=== PATIENT | male | born 1945 | race Caucasian/White ===

== ENCOUNTER 2016-11-10 18:33 | Emergency (ER) | payer OTHER ==
[~2016-11-10] VITALS: Ht 175.3 cm; Wt 95.3 kg
[~2016-11-10 18:33] MED LIST: ASPIRIN81 M4 PO; CIPRO500 M1 PO; CLOPIDOGREL75 M1 PO; DAILY MULTIPLE1 EACH PO; FISH OIL 1,0001 EACH PO; FLAGYL250 M1 PO; FLOMAX0.4 M1 PO; LEVOTHYROXINE75 MCG PO; LEVSIN0.5 MG/1 M PO; LOSARTAN POTASS50 M1 PO; METFORMIN HCL500 M3 PO; METOPROLOL SUCC25 M1 PO; SIMVASTATIN40 M1 PO; VITAMIN C500 M6 PO; VITAMIN D31000 UNI2 PO
[2016-11-10] MEDS ORDERED: HYOSCYAMINE0.125 M5 SL (18:52)
[2016-11-10] MEDS ORDERED: LEVOTHYROXINE88 MCG PO (18:53)
[2016-11-10 18:57] LABS: ABSOLUTE BASOPHIL COUNT 0 /CUMM (0.0-0.2); ABSOLUTE EOSINOPHIL COUNT 0.2 /CUMM (0.0-0.7); ABSOLUTE GRANULOCYTE CT 6.3 /CUMM (1.4-6.5); ABSOLUTE LYMPH COUNT 1.2 /CUMM (1.2-3.4); ABSOLUTE MONOCYTE COUNT 0.6 /CUMM (0.10-0.60); BASOPHIL % 0.2 % (0.0-2.0); EOSINOPHIL % 2.3 % (0-5); GRANULOCYTE % 75.5 % (42.2-75.2); HEMATOCRIT 42.4 % (42-52); MEAN CORPUSCULAR HGB 29.7 PG (27.0-31.0); MEAN CORPUSCULAR HGB CONC 34.1 G/DL (33.0-37.0); MEAN CORPUSCULAR VOLUME 87.2 FL (80.0-94.0); MEAN PLATELET VOLUME 7.8 FL (7.4-10.4); PLATELET COUNT 163 /CUMM (130-400); RED BLOOD CELL CT 4.86 /CUMM (4.70-6.10); WHITE BLOOD CELL COUNT 8.4 /CUMM (4.8-10.8)
--- NOTE | 2016-11-10 19:53 | ED GI/GU/ABDOMINAL COMPLAINT ---
History of Present Illness General Chief Complaint: Abdominal Pain/Flank Pain Stated Complaint: ?DIVERTICULITIS Source: patient, family, old records Exam Limitations: no limitations Vital Signs & Intake/Output Vital Signs & Intake/Output Vital Signs Date Time Temp Pulse Resp B/P Pulse O2 O2 Flow FiO2 Ox Delivery Rate 11/104 97.1 70 16 152/70 97 Room Air 11/10 2004 Room Air 11/10 1838 98.3 79 16 169/79 97 Room Air Allergies Coded Allergies: No Known Allergies (08/19/16) Reconcile Medications Amoxicillin/Potassium Clav (Augmentin 875-125 Tablet) 875 MG-125 MG TABLET 1 TAB PO BID diverticulitis Ascorbate Calcium (Vitamin C) 500 MG TABLET 1 TAB PO DAILY SUPPLEMENT ( Reported) Aspirin (Aspirin*) 81 MG TAB.CHEW 1 TAB PO QPM HEART HEALTH (Reported) Cholecalciferol (Vitamin D3) 1,000 UNIT TABLET 2 TAB PO DAILY SUPPLEMENT ( Reported) Clopidogrel Bisulfate (Clopidogrel) 75 MG TABLET 1 TAB PO DAILY BLOOD THINNER (Reported) Hyoscyamine Sulfate 0.125 MG TAB.SUBL 1 TAB SL 4 TIMES/DAY GI (Reported) Hyoscyamine Sulfate (Levsin-Sl) 0.125 MG TAB.SUBL 1-2 TAB SL Q4P PRN abd cramps Levothyroxine Sodium 88 MCG TABLET 1 TAB PO DAILY THYROID (Reported) Losartan Potassium 50 MG TABLET 1 TAB PO DAILY HEART (Reported) Metformin HCl 500 MG TABLET 1 TAB PO BID DIABETES (Reported) Metoprolol Succinate 25 MG TAB 1 TAB PO BID HEART (Reported) Multivitamin (Daily Multiple Vitamin) 1 EACH TABLET 1 TAB PO DAILY SUPPLEMENT (Reported) Kim-3 Fatty Acids/Fish Oil (Fish Oil 1,000 MG Capsule) 340 MG-1,000 MG CAPSULE 1 CAP PO BID SUPPLEMENT (Reported) Simvastatin (Simvastatin*) 40 MG TABLET 1 TAB PO QPM CHOLESTEROL (Reported) Tamsulosin HCl (Flomax) 0.4 MG CAP.ER.24H 1 CAP PO DAILY BPH (Reported) Tramadol HCl (Ultram) 50 MG TABLET 1-2 TAB PO Q6PRN PRN severe pain Triage Note: PT HAVING ABD PAIN ON HIS LEFT SIDE FLANK AREA RADIATING TO HIS LOWER ABD. PT STATES THE PAIN BEGAN AND STATES HE HAS HAD 3 BM TODAY. Triage Nurses Notes Reviewed? yes Onset: Afternoon Duration: hour(s):, constant, continues in ED Timing: recent history Quality/Severity: aching, moderate Location: left lower quadrant Radiation: periumbilical Activities at Onset: none Prior Abdominal Problems: similar symptoms Past Sexual History: Unobtainable at this time Modifying Factors: Worsens With: movement, palpation. Associated Symptoms: abdominal pain, loss of appetite HPI: Several hours prior to admission patient developed left lower quadrant pain described as achy moderate in severity radiating to his umbilicus similar to previous diverticulitis pain associated with decreased appetite worse with palpation and movement. He notes 3 episodes of bowel movement today. He denies fever chills nausea vomiting chest pain cough shortness of breath headache dysuria rash bleeding. Past History Travel History Traveled to [place] past 21 day No Medical History Any Pertinent Medical History? 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 No Review of Systems Review of Systems Constitutional: Reports: no symptoms. EENTM: Reports: no symptoms. Respiratory: Reports: no symptoms. Cardiovascular: Reports: no symptoms. GI: Reports: see HPI, abdominal pain, changes in stool. Genitourinary: Reports: no symptoms. Musculoskeletal: Reports: no symptoms. Skin: Reports: no symptoms. Neurological/Psychological: Reports: no symptoms. Hematologic/Endocrine: Reports: no symptoms. Immunologic/Allergic: Reports: no symptoms. All Other Systems: Reviewed and Negative Physical Exam Physical Exam General Appearance: well developed/nourished, alert, awake, anxious, mild distress Head: atraumatic, normal appearance Eyes: Bilateral: normal appearance, PERRL, EOMI, normal inspection. Ears, Nose, Throat, Mouth: hearing grossly normal, moist mucous membrane Neck: normal inspection, supple, full range of motion, normal alignment Respiratory: normal breath sounds, chest non-tender, no respiratory distress, quiet respiration, lungs clear Cardiovascular: regular rate/rhythm, normal peripheral pulses, norml femoral pulses equa Peripheral Pulses: 4+ carotid (R), 4+ carotid (L) Gastrointestinal: normal bowel sounds, soft, no organomegaly, tenderness Male Genitals: normal genitalia Back: normal inspection, normal range of motion Extremities: normal range of motion Neurologic/Psych: no motor/sensory deficits, awake, alert, oriented x 3, normal gait, normal mood/affect Skin: intact, normal color, warm/dry Core Measures ACS in differential dx? No Severe Sepsis Present: No Septic Shock Present: No Progress Differential Diagnosis: diverticulitis, gastritis Plan of Care: Orders Procedure Date/time Status LACTIC ACID 11/10 2138 Active URINALYSIS 11/10 1838 Active LACTIC ACID 11/10 1838 Complete COMPREHENSIVE METABOLIC PANEL 11/10 1838 Complete CBC WITHOUT DIFFERENTIAL 11/10 1838 Complete Current Medications Sig/Dionne Start time Last Medication Dose Stop Time Status Admin Tramadol HCl 50 MG ONCE ONE 11/10 2114 UNVr (Ultram) 11/10 2115 Laboratory Tests 11/10/161838: Anion Gap 9, Estimated GFR > 60, BUN/Creatinine Ratio 21.0, Glucose 112 H, Lactic Acid 1.0, Calcium 9.2, Total Bilirubin 0.6, AST 21, ALT 39, Alkaline Phosphatase 63, Total Protein 7.1, Albumin 4.1, Globulin 3.0, Albumin/Globulin Ratio 1.4, CBC w Diff NO MAN DIFF REQ, RBC 4.86, MCV 87.2, MCH 29.7, RDW 14.0, MPV 7.8, Gran % 75.5 H, Lymphocytes % 14.3 L, Monocytes % 7.7, Eosinophils % 2.3, Basophils % 0.2, Absolute Granulocytes 6.3, Absolute Lymphocytes 1.2, Absolute Monocytes 0.6, Absolute Eosinophils 0.2, Absolute Basophils 0, PUBS MCHC 34.1 Diagnostic Imaging: Viewed by Me: CT Scan. Discussed w/RAD: CT Scan. Radiology Impression: 1. Acute diverticulitis involving the distal descending colon and proximal sigmoid colon, similar in location to the August 19, 2016 CT scan. There is no pericolonic fluid collection or sign of perforation. No pelvic free fluid. 2. Prior cholecystectomy. 3. Mild hepatic steatosis. 4. Atherosclerosis. Initial ED EKG: none Departure Departure Time of Disposition: 2039 Disposition: HOME OR SELF CARE Condition: Stable Clinical Impression Primary Impression: Diverticulitis Qualifiers: Diverticulitis site: unspecified part of intestinal tract Diverticulitis bleeding: without bleeding Diverticulitis complication: without perforation or abscess Qualified Code: K57.92 - Diverticulitis of intestine, part unspecified, without perforation or abscess without bleeding Referrals: JAXSON FOLEY,KEEGAN Nogueira (PCP/Family) Departure Forms: Customer Survey General Discharge Information Prescriptions: Current Visit Scripts Amoxicillin/Potassium Clav (Augmentin 875-125 Tablet) 1 TAB PO BID #20 TAB Hyoscyamine Sulfate (Levsin-Sl) 1-2 TAB SL Q4P PRN abd cramps #30 TAB Tramadol HCl (Ultram) 1-2 TAB PO Q6PRN PRN severe pain #30 TAB
--- NOTE | 2016-11-10 20:19 | CT SCAN REPORT ---
EXAMINATION: CT ABDOMEN AND PELVIS WITH CONTRAST CLINICAL INFORMATION: Abdominal pain COMPARISON: August 19, 2016 CT abdomen pelvis TECHNIQUE: Multidetector volumetric imaging was performed of the abdomen and pelvis before and after the IV administration of 90 mL of Optiray 320 intravenous contrast. Sagittal and coronal reformatted images were obtained on the technologist's workstation. DLP: 722.71 mGy-cm FINDINGS: LUNG BASES: There is a 10 mm groundglass opacity in the lingula, adjacent to the left major fissure, unchanged since comparison exam. The lung bases are otherwise clear. No pleural effusion. The cardiac size is normal. Atherosclerotic calcifications of coronary arteries seen. No pericardial effusion. LIVER, GALLBLADDER, AND BILIARY TREE: There is mild diffuse decreased hepatic parenchymal density, unchanged since prior exam and could represent some degree of hepatic steatosis. No focal hepatic lesions seen. The portal vein is patent. The gallbladder is absent, prior cholecystectomy. No biliary ductal dilatation seen. PANCREAS: Unremarkable. SPLEEN: Mild splenomegaly, up to 14.4 cm in longest diameter. The splenic parenchyma demonstrates normal homogeneous enhancement. ADRENAL GLANDS: Unremarkable. KIDNEYS AND URETERS: The kidneys are normal in size, shape, and attenuation. No hydronephrosis, hydroureter, or calculi seen. No perinephric stranding. BLADDER: Unremarkable. GASTROINTESTINAL TRACT: The stomach, duodenum, and small bowel loops are unremarkable. The colon is not dilated. There is significant diverticular disease of sigmoid colon and descending colon. There is pericolonic fat stranding in the region of distal descending colon and proximal sigmoid colon adjacent to multiple diverticuli. Findings represent acute diverticulitis. There is no evidence of pericolonic fluid collection or sign of perforation. ABDOMINAL WALL: No significant hernia is appreciated. LYMPH NODES: Normal. VASCULAR: Atherosclerotic calcifications of abdominal aorta and major branches noted. No aneurysmal dilatation seen. PELVIC VISCERA: Unremarkable. OSSEOUS STRUCTURES: Postsurgical changes at L3-L4 levels with transpedicular screws, similar to prior exam. IMPRESSION: 1. Acute diverticulitis involving the distal descending colon and proximal sigmoid colon, similar in location to the August 19, 2016 CT scan. There is no pericolonic fluid collection or sign of perforation. No pelvic free fluid. 2. Prior cholecystectomy. 3. Mild hepatic steatosis. 4. Atherosclerosis.
[2016-11-10] MEDS ORDERED: AUGMENTIN 875-1 EACH PO (20:43)
[2016-11-10] MEDS ORDERED: LEVSIN-SL0.125 MG SL (20:43)
[2016-11-10] MEDS ORDERED: ULTRAM50 M1 PO (20:45)
[2016-11-10 21:14] VITALS: BP 152/70
== END 2016-11-10 21:26 ==
LOC: ERH 18:33
PROVIDERS: Emergency Medicine
DX: K57.92 Diverticulitis of intestine, part unspecified, without perforation or abscess without bleeding (principal)
CPT/HCPCS: 74177; 96361; 96374; 96375; J1885

== ENCOUNTER 2016-12-10 07:37 | Inpatient (IN) | payer OTHER ==
[~2016-12-10] VITALS: Ht 175.3 cm; Wt 92.1 kg
[~2016-12-10 07:37] MED LIST changes: +AUGMENTIN 875-1 EACH PO; +HYOSCYAMINE0.125 M5 SL; +LEVOTHYROXINE88 MCG PO; +LEVSIN-SL0.125 MG SL; +ULTRAM50 M1 PO
--- NOTE | 2016-12-10 07:50 | NUR ---
PT TO ED C/O "FLARE UP OF DIVERTICULITIS". STARTED LAST WEEK. WENT TO SEE PCP, WAS GIVEN CIPRO AND FLAGYL. HAS BEEN TAKING PRESCRIBED AND DOES NOT FEEL BETTER. C/O NAUSEA AND DIARRHEA. PAIN IS LLQ.
[2016-12-10 08:33] LABS: ABSOLUTE BASOPHIL COUNT 0 /CUMM (0.0-0.2); ABSOLUTE EOSINOPHIL COUNT 0.2 /CUMM (0.0-0.7); ABSOLUTE GRANULOCYTE CT 4.9 /CUMM (1.4-6.5); ABSOLUTE LYMPH COUNT 0.6 /CUMM (1.2-3.4); ABSOLUTE MONOCYTE COUNT 0.5 /CUMM (0.10-0.60); BASOPHIL % 0.2 % (0.0-2.0); EOSINOPHIL % 2.9 % (0-5); GRANULOCYTE % 79.8 % (42.2-75.2); HEMATOCRIT 42.3 % (42-52); MEAN CORPUSCULAR HGB 29.8 PG (27.0-31.0); MEAN CORPUSCULAR HGB CONC 34.2 G/DL (33.0-37.0); MEAN CORPUSCULAR VOLUME 87.1 FL (80.0-94.0); MEAN PLATELET VOLUME 7.8 FL (7.4-10.4); PLATELET COUNT 164 /CUMM (130-400); RBC DISTRIBUTION WIDTH 13.8 % (11.5-14.5); RED BLOOD CELL CT 4.86 /CUMM (4.70-6.10); WHITE BLOOD CELL COUNT 6.1 /CUMM (4.8-10.8)
--- NOTE | 2016-12-10 08:38 | NUR ---
PA AT BEDSIDE
--- NOTE | 2016-12-10 08:41 | NUR ---
BLOODORK, BLUE,MARTIN,LAV,SST AND PINK TOP TUBES SENT TO LAB. JEFFREY SIN IN TO EVAL AT THIS TIME.
--- NOTE | 2016-12-10 08:51 | NUR ---
EKG DONE, PT AWARE OF NEED FOR URINE SPECIMEN WHEN ABLE TO PROVIDE.
--- NOTE | 2016-12-10 09:19 | NUR ---
PT RESTING ON STRETCHER, OFFERS NO COMPLAINTS AT THIS TIME, STATES THAT WHEN HE IS LAYING DOWN HE HAS NO PAIN , TV TURNED ON FOR PT AND PT PROVIDED WITH BLANKET, PT AWARE THAT WE ARE WAITING FOR RAD TO COME TAKE HIM TO CT SCAN. FLUIDS CONTINUE TO INFUSE
--- NOTE | 2016-12-10 09:28 | NUR ---
PT TO CT VIA STRETCHER AT THIS TIME.
--- NOTE | 2016-12-10 09:43 | NUR ---
PT RETURNS TO ROOM VIA STRETCHER FROM CT. REMAINS AT BEDSIDE.
--- NOTE | 2016-12-10 10:04 | NUR ---
PT AMBULATED TO BATHROOM WITH STEADY GAIT, STATES THAT HE HAD WATERY STOOL WHILE IN THERE
--- NOTE | 2016-12-10 10:14 | ED GI/GU/ABDOMINAL COMPLAINT ---
History of Present Illness General Chief Complaint: Abdominal Pain/Flank Pain Stated Complaint: LOWER ABD PAIN Source: patient, family, old records Exam Limitations: no limitations Vital Signs & Intake/Output Vital Signs & Intake/Output Vital Signs Date Time Temp Pulse Resp B/P Pulse O2 O2 Flow FiO2 Ox Delivery Rate 12/10 1004 98.1 80 18 120/68 98 Room Air 12/10 0748 97.2 89 20 118/70 97 Room Air Allergies Coded Allergies: No Known Allergies (08/19/16) Reconcile Medications Ascorbate Calcium (Vitamin C) 500 MG TABLET 1 TAB PO DAILY SUPPLEMENT ( Reported) Aspirin (Aspirin*) 81 MG TAB.CHEW 1 TAB PO QPM HEART HEALTH (Reported) Cholecalciferol (Vitamin D3) 1,000 UNIT TABLET 2 TAB PO DAILY SUPPLEMENT ( Reported) Clopidogrel Bisulfate (Clopidogrel) 75 MG TABLET 1 TAB PO DAILY BLOOD THINNER (Reported) Hyoscyamine Sulfate 0.125 MG TAB.SUBL 1 TAB SL 4 TIMES/DAY GI (Reported) Levothyroxine Sodium 88 MCG TABLET 1 TAB PO DAILY THYROID (Reported) Losartan Potassium 50 MG TABLET 1 TAB PO DAILY HEART (Reported) Metformin HCl 500 MG TABLET 1 TAB PO BID DIABETES (Reported) Metoprolol Succinate 25 MG TAB 1 TAB PO BID HEART (Reported) Multivitamin (Daily Multiple Vitamin) 1 EACH TABLET 1 TAB PO DAILY SUPPLEMENT (Reported) [place]-3 Fatty Acids/Fish Oil (Fish Oil 1,000 MG Capsule) 340 MG-1,000 MG CAPSULE 1 CAP PO BID SUPPLEMENT (Reported) Simvastatin (Simvastatin*) 40 MG TABLET 1 TAB PO QPM CHOLESTEROL (Reported) Tamsulosin HCl (Flomax) 0.4 MG CAP.ER.24H 1 CAP PO DAILY BPH (Reported) Triage Note: PT TO ED C/O "FLARE UP OF DIVERTICULITIS". STARTED LAST WEEK. WENT TO SEE PCP, WAS GIVEN CIPRO AND FLAGYL. HAS BEEN TAKING PRESCRIBED AND DOES NOT FEEL BETTER. C/O NAUSEA AND DIARRHEA. PAIN IS LLQ. Triage Nurses Notes Reviewed? yes Onset: Abrupt Duration: day(s):, constant, getting worse Timing: recent history Quality/Severity: moderate, sharpness, severe Location: lower abdomen Radiation: no radiation Activities at Onset: none No Modifying Factors: none HPI: 71-year-old male comes into emergency room for further evaluation of abdominal pain. Pain has been lower abdomen. Patient has a history of diverticulitis. Patient reports that the pain feels similar to previous diverticulitis. Patient has had some loose bowel movements. Denies any fever chills vomiting. Pain sharp. Continuous. Nonradiating. Denies any other associated symptoms. (JEFFREY BOWDEN) Past History Travel History Traveled to [place] past 21 day No Medical History Any Pertinent Medical History? 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 No (JEFFREY BOWDEN) Review of Systems Review of Systems Constitutional: Reports: see HPI. EENTM: Reports: no symptoms. Respiratory: Reports: no symptoms. Cardiovascular: Reports: no symptoms. GI: Reports: see HPI. Genitourinary: Reports: no symptoms. Musculoskeletal: Reports: no symptoms. Skin: Reports: no symptoms. Neurological/Psychological: Reports: no symptoms. Hematologic/Endocrine: Reports: no symptoms. Immunologic/Allergic: Reports: no symptoms. All Other Systems: Reviewed and Negative (JEFFREY BOWDEN) Physical Exam Physical Exam General Appearance: well developed/nourished, alert, mild distress Head: atraumatic, normal appearance Eyes: Bilateral: normal appearance. Ears, Nose, Throat, Mouth: hearing grossly normal, moist mucous membrane Neck: normal inspection, full range of motion Respiratory: normal breath sounds, no respiratory distress Cardiovascular: regular rate/rhythm Gastrointestinal: soft, tenderness Back: normal inspection Extremities: normal range of motion Neurologic/Psych: awake, alert, oriented x 3, normal gait Skin: intact, normal color Core Measures ACS in differential dx? No Severe Sepsis Present: No Septic Shock Present: No (JEFFREY BOWDEN) Progress Differential Diagnosis: AMI, appendicitis, colon cancer, diverticulitis, hepatitis, hemorrhoids, ischemic bowel, orchitis, pancreatitis, prostatitis, peptic ulcer, PUD/GERD, perforated viscous, pyelonephritis, testicular torsion, ureterolithiasis, urinary retention, urethritis, UTI/pyelo Diagnostic Imaging: Viewed by Me: CT Scan. Discussed w/RAD: CT Scan. Radiology Impression: SERVICE DATE: 12/10/16 EXAM TYPE: CAT - CT ABD & PELVIS W IV CONTRAST EXAMINATION: CT ABDOMEN AND PELVIS WITH CONTRAST CLINICAL INFORMATION: Diverticulitis. Left lower quadrant pain. COMPARISON: Multiple prior examinations including CT 11/10/2016. TECHNIQUE: Multidetector volumetric imaging was performed of the abdomen and pelvis before and after the IV administration of 94 mL of Optiray 320 intravenous contrast. Sagittal and coronal reformatted images were obtained on the technologist's workstation. DLP: 729 mGy-cm FINDINGS: LUNG BASES: The visualized lung bases are unremarkable. LIVER, GALLBLADDER, AND BILIARY TREE: Status post cholecystectomy. Slight prominence of the intrahepatic biliary tree unchanged compatible with postoperative change without clinical significance. Liver parenchyma is normal. PANCREAS: Unremarkable. SPLEEN: Unremarkable. ADRENAL GLANDS: Unremarkable. KIDNEYS AND URETERS: The kidneys are normal in size, shape, and attenuation. No hydronephrosis, hydroureter, or calculi seen. No perinephric stranding. BLADDER: Normal. GASTROINTESTINAL TRACT: There is scattered diverticulosis throughout the colon. There is a new area of pericolonic stranding in the proximal sigmoid extending over a length of approximately 4 cm consistent with new focus of diverticulitis. The previously noted area of pericolonic inflammatory change in the distal descending colon has cleared. SMALL BOWEL: Normal. STOMACH: Normal. APPENDIX: Normal. ABDOMINAL WALL: No significant hernia is appreciated. LYMPH NODES: Normal. VASCULAR: Moderate arterial calcification throughout, unchanged. PELVIC VISCERA: Unremarkable. OSSEOUS STRUCTURES: Stable postoperative changes related to lumbar fusion at L3-L4. Multilevel spondylosis of the lumbar sacral spine. IMPRESSION: New focus of acute diverticulitis in the proximal sigmoid colon. Clearing of the previously noted diverticulitis in the distal descending colon. Scattered diverticulosis throughout the large bowel. Status post cholecystectomy. Multilevel spondylosis of lumbar sacral spine with postoperative changes related to lumbar fusion at L3-L4 unchanged. Initial ED EKG: normal intervals, normal p-waves, normal sinus rhythm, rate (70) (JEFFREY BOWDEN) Plan of Care: Orders Procedure Date/time Status CBC WITHOUT DIFFERENTIAL 12/11 0600 Active BASIC ELECTROLYTES PLUS BUN&CR 12/11 0600 Active Full Liquid Diet 12/10 L Complete Full Liquid Diet 12/10 D Active Code Status 12/10 1223 Active FingerStick- Glucose 12/10 1214 Active Code Status 12/10 1158 Complete Pathway - chart 12/10 1150 Active House Staff 12/10 1150 Active Admit to inpatient 12/10 1134 Active Patient Data 12/10 1133 Active Add-on Test (ER Only) 12/10 0834 Active EKG 12/10 0833 Active Intake & Output 12/10 0828 Active URINALYSIS 12/10 0820 Complete TROPONIN LEVEL 12/10 0820 Complete LIPASE 12/10 0820 Complete LACTIC ACID 12/10 0820 Complete COMPREHENSIVE METABOLIC PANEL 12/10 0820 Complete CBC WITHOUT DIFFERENTIAL 12/10 0820 Complete AMYLASE 12/10 0820 Complete VTE Mechanical Prophylaxis 12/10 UNK Active Vital Signs 12/10 UNK Active FingerStick- Glucose 12/10 UNK Active Current Medications Sig/Dionne Start time Last Medication Dose Stop Time Status Admin Ceftriaxone Sodium 1,000 MG DAILY 12/11 1000 UNVr (Rocephin) Clopidogrel Bisulfate 75 MG DAILY 12/11 1000 AC (Plavix) Levothyroxine Sodium 0.088 MG DAILY 12/11 1000 UNVr (Synthroid) Losartan Potassium 50 MG DAILY 12/11 1000 UNVr (Cozaar) Tamsulosin HCl 0.4 MG DAILY 12/11 1000 UNVr (Flomax) Aspirin 81 MG QPM 12/10 2200 AC (Aspirin) Metoprolol Tartrate 25 MG BID 12/10 2200 UNVr (Lopressor) Atorvastatin Calcium 20 MG 1700 03/ 1700 AC (Lipitor) Insulin Aspart 0 TIDAC 12/10 1700 UNVr (NovoLOG) Metronidazole 500 MG IQ8 12/10 1600 UNVr (Flagyl) N/A 1 UNIT (No Carrier) Heparin Sodium 5,000 UNIT Q8 12/10 1400 AC (Porcine) Tramadol HCl 50 MG Q6 PRN 12/10 1230 UNVr (Ultram) Acetaminophen 650 MG Q6 PRN 12/10 1200 AC (Tylenol) Acetaminophen 1,000 MG Q6P PRN 12/10 1200 ([facility]) Laboratory Tests 12/10/16 1130: Urine Color YEL, Urine Clarity CLEAR, Urine pH 6.5, Ur Specific [place] <= 1.005 , Urine Protein NEG, Urine Ketones NEG, Urine Nitrite NEG, Urine Bilirubin NEG, Urine Urobilinogen 0.2, Ur Leukocyte Esterase NEG, Ur Microscopic EXAM NOT REQUIRED, Urine Hemoglobin NEG, Urine Glucose NEG 12/10/16 1120: Lactic Acid Cancelled 12/10/16 0820: Anion Gap 10, Estimated GFR > 60, BUN/Creatinine Ratio 10.9, Glucose 127 H, Lactic Acid 1.0, Calcium 9.6, Total Bilirubin 1.0, AST 30, ALT 35, Alkaline Phosphatase 61, Troponin I < 0.01, Total Protein 6.9, Albumin 3.9, Globulin 3.0, Albumin/Globulin Ratio 1.3, Amylase < 30 L, Lipase 33, CBC w Diff NO MAN DIFF REQ, RBC 4.86, MCV 87.1, MCH 29.8, RDW 13.8, MPV 7.8, Gran % 79.8 H, Lymphocytes % 9.6 L, Monocytes % 7.5, Eosinophils % 2.9, Basophils % 0.2, Absolute Granulocytes 4.9, Absolute Lymphocytes 0.6 L, Absolute Monocytes 0.5, Absolute Eosinophils 0.2, Absolute Basophils 0, PUBS MCHC 34.2 Departure Departure Disposition: STILL A PATIENT Condition: Stable Clinical Impression Primary Impression: Diverticulitis Referrals: JAXSON FOLEY,KEEGAN Nogueira (PCP/Family) Departure Forms: Customer Survey General Discharge Information Admission Note Spoke With: AVERY CHAU MD Documentation of Exam: Documentation of any treatments & extenuating circumstances including Concerns Regarding Discharge (functional status, medication knowledge or non-compliance, living conditions, etc.) that warrant an admission rather than observation: Patient has failed outpatient treatment with oral antibiotics. Patient will require IV antibiotics. High risk. Patient would do poorly as an outpatient. Patient will require GI consult and possible colorectal consult. (JEFFREY BOWDEN) PA/MESH MAN Co-Sign Statement Statement: ED Attending supervision documentation- [X] I saw and evaluated the patient. I have also reviewed all the pertinent lab results and diagnostic results. I agree with the findings and the plan of care as documented in the PA's/MESH MAN's documentation. [] I have reviewed the ED Record and agree with the PA's/MESH MAN's documentation. [] Additions or exceptions (if any) to the PAs/MESH MAN's note and plan are summarized below: [] (EDIE FOLEY,VIANNEY Abraham)
--- NOTE | 2016-12-10 10:21 | CT SCAN REPORT ---
EXAMINATION: CT ABDOMEN AND PELVIS WITH CONTRAST CLINICAL INFORMATION: Diverticulitis. Left lower quadrant pain. COMPARISON: Multiple prior examinations including CT 11/10/2016. TECHNIQUE: Multidetector volumetric imaging was performed of the abdomen and pelvis before and after the IV administration of 94 mL of Optiray 320 intravenous contrast. Sagittal and coronal reformatted images were obtained on the technologist's workstation. DLP: 729 mGy-cm FINDINGS: LUNG BASES: The visualized lung bases are unremarkable. LIVER, GALLBLADDER, AND BILIARY TREE: Status post cholecystectomy. Slight prominence of the intrahepatic biliary tree unchanged compatible with postoperative change without clinical significance. Liver parenchyma is normal. PANCREAS: Unremarkable. SPLEEN: Unremarkable. ADRENAL GLANDS: Unremarkable. KIDNEYS AND URETERS: The kidneys are normal in size, shape, and attenuation. No hydronephrosis, hydroureter, or calculi seen. No perinephric stranding. BLADDER: Normal. GASTROINTESTINAL TRACT: There is scattered diverticulosis throughout the colon. There is a new area of pericolonic stranding in the proximal sigmoid extending over a length of approximately 4 cm consistent with new focus of diverticulitis. The previously noted area of pericolonic inflammatory change in the distal descending colon has cleared. SMALL BOWEL: Normal. STOMACH: Normal. APPENDIX: Normal. ABDOMINAL WALL: No significant hernia is appreciated. LYMPH NODES: Normal. VASCULAR: Moderate arterial calcification throughout, unchanged. PELVIC VISCERA: Unremarkable. OSSEOUS STRUCTURES: Stable postoperative changes related to lumbar fusion at L3-L4. Multilevel spondylosis of the lumbar sacral spine. IMPRESSION: New focus of acute diverticulitis in the proximal sigmoid colon. Clearing of the previously noted diverticulitis in the distal descending colon. Scattered diverticulosis throughout the large bowel. Status post cholecystectomy. Multilevel spondylosis of lumbar sacral spine with postoperative changes related to lumbar fusion at L3-L4 unchanged.
--- NOTE | 2016-12-10 11:06 | NUR ---
PER PA SECOND LACTIC ACID NOT NEEDED
--- NOTE | 2016-12-10 11:07 | NUR ---
PA AT BEDSIDE TO DISCUSS PLAN OF CARE
--- NOTE | 2016-12-10 11:17 | NUR ---
PT TO BE ADMITTED TO HOSPITAL. PT IS AWARE .
--- NOTE | 2016-12-10 11:40 | History & Physical ---
WILLIAM DEE 12/10/16 1137: General Information and HPI MD Statement: I have seen and personally examined FRANCISCO J PADILLA and documented this H&P. The patient is a 71 year old M who presented with a patient stated chief complaint of [LEFT LOWER QUADRANT PAIN]. Source of Information: patient Exam Limitations: no limitations History of Present Illness: 71-year-old male with a past medical history of hypothyroidism, diverticulitis, BPH, coronary artery disease status post stent placement in December 2013 currently on aspirin and Plavix follows up with Dr. Kilpatrick, hypertension, hyperlipidemia, [id number] diabetes mellitus presents to the ED with chief complaint of nausea, diarrhea accompanied with left lower quadrant pain. According to the patient he was in usual state of health until Nov 10, 2016, when he first had an episode of diverticulitis. At that time he was started on Augmentin 875 mg twice a day for a total of 10 days. He finished his Abx course and continued to have symptoms erratically up until this past , 2016. At that time he started to experience left-sided lower abdominal pain that he graded as an 8 out of 10. This was accompanied by nausea, as well as watery stools averaging about 2-3 per day. Patient denies any blood in his stools, fever but does admit to subjective chills. He denies vomiting. Of note he did have [place] food Saturday night and a sandwich from [employer] on afternoon. His symptoms started later on evening. Of note, the patient followed up with Dr. Pruitt after his discharge for an scute flare in August 2016, and was advised to start Metamucil, and high fiber diet, which he didn't comply with. Allergies/Medications Allergies: Coded Allergies: No Known Allergies (08/19/16) Home Med list Ascorbate Calcium (Vitamin C) 500 MG TABLET 1 TAB PO DAILY SUPPLEMENT ( Reported) Aspirin (Aspirin*) 81 MG TAB.CHEW 1 TAB PO QPM HEART HEALTH (Reported) Cholecalciferol (Vitamin D3) 1,000 UNIT TABLET 2 TAB PO DAILY SUPPLEMENT ( Reported) Clopidogrel Bisulfate (Clopidogrel) 75 MG TABLET 1 TAB PO DAILY BLOOD THINNER (Reported) Hyoscyamine Sulfate 0.125 MG TAB.SUBL 1 TAB SL 4 TIMES/DAY GI (Reported) Levothyroxine Sodium 88 MCG TABLET 1 TAB PO DAILY THYROID (Reported) Losartan Potassium 50 MG TABLET 1 TAB PO DAILY HEART (Reported) Metformin HCl 500 MG TABLET 1 TAB PO BID DIABETES (Reported) Metoprolol Succinate 25 MG TAB 1 TAB PO BID HEART (Reported) Multivitamin (Daily Multiple Vitamin) 1 EACH TABLET 1 TAB PO DAILY SUPPLEMENT (Reported) [place]-3 Fatty Acids/Fish Oil (Fish Oil 1,000 MG Capsule) 340 MG-1,000 MG CAPSULE 1 CAP PO BID SUPPLEMENT (Reported) Simvastatin (Simvastatin*) 40 MG TABLET 1 TAB PO QPM CHOLESTEROL (Reported) Tamsulosin HCl (Flomax) 0.4 MG CAP.ER.24H 1 CAP PO DAILY BPH (Reported) Past History Travel History Traveled to [place] past 21 day No Medical History Neurological: NONE EENT: sinusitis, HEMOFACIAL SPASM Cardiovascular: hypertension, hyperlipidemia, cad s/p stent in 12/18 Respiratory: bronchitis Gastrointestinal: diverticulitis Hepatic: CHOLECYSTECTOMY Renal: NONE Musculoskeletal: osteoarthritis Psychiatric: NONE Endocrine: diabetes, hypothyroidism Blood Disorders: NONE Cancer(s): NONE OVERNIGHT STOCKER/Reproductive: NONE History of MRSA: No History of VRE: No History of CDIFF: No Surgical History Surgical History: cholecystectomy, laminectomy, LUMBAR MCGHEE Past Family/Social History Family History Relations & Conditions if any Relation not specified for: *No pertinent family history Psychosocial History Services at Home: None ETOH Use: denies use Illicit Drug Use: denies illicit drug use Functional Ability ADLs Independent: dressing, eating, toileting, bathing. Ambulation: independent Review of Systems Review of Systems Constitutional: Reports: chills. Denies: fever, weakness. EENTM: Denies: visual changes. Cardiovascular: Denies: chest pain, palpitations, peripheral edema, syncope. Respiratory: Denies: cough, orthopnea, short of breath, sputum production, wheezing. GI: Reports: abdominal pain, bloating, diarrhea, nausea. Denies: constipation, distention, bloody stool, vomiting. Genitourinary: Reports: no symptoms. Musculoskeletal: Reports: no symptoms. Neurological/Psychological: Denies: headache, numbness, tingling, tremors. Exam & Diagnostic Data Last 24 Hrs of Vital Signs/I&O Vital Signs Date Time Temp Pulse Resp B/P Pulse O2 O2 Flow FiO2 Ox Delivery Rate 12/10 1004 98.1 80 18 120/68 98 Room Air 12/10 0748 97.2 89 20 118/70 97 Room Air Intake & Output 12/10 1600 12/10 0800 03 0000 Intake Total 1000 Output Total Balance 1000 Intake, IV 1000 Patient 203 lb Weight Physical Exam General Appearance Alert, Oriented X3, Cooperative, No Acute Distress Skin No Rashes HEENT Atraumatic, PERRLA, EOMI, dry mucous membranes Neck Supple, No JVD, No thryomegaly, +2 Carotid Pulse wo Bruit, No LAD Cardiovascular Regular Rate, Normal S1, Normal S2, No Murmurs Lungs Clear to Auscultation, Normal Air Movement Abdomen Normal Bowel Sounds, Soft, tender to palpation in left lower abdomen Neurological Normal Speech, Strength at 5/5 X4 Ext, Normal Tone, Sensation Intact, Cranial Nerves 3-12 NL, Reflexes 2+ Extremities No Clubbing, No Cyanosis, No Edema, Normal Pulses, No Tenderness/ Swelling Last 24 Hrs of Labs/Shakir: Laboratory Tests 12/10/16 1130: Urine Color Pending, Urine Clarity Pending, Urine pH Pending, Ur Specific [place] Pending, Urine Protein Pending, Urine Ketones Pending, Urine Nitrite Pending, Urine Bilirubin Pending, Urine Urobilinogen Pending, Ur Leukocyte Esterase Pending, Ur Microscopic Pending, Urine Hemoglobin Pending, Urine Glucose Pending 12/10/16 1120: Lactic Acid Cancelled 12/10/16 0820: Anion Gap 10, Estimated GFR > 60, BUN/Creatinine Ratio 10.9, Glucose 127 H, Lactic Acid 1.0, Calcium 9.6, Total Bilirubin 1.0, AST 30, ALT 35, Alkaline Phosphatase 61, Troponin I < 0.01, Total Protein 6.9, Albumin 3.9, Globulin 3.0, Albumin/Globulin Ratio 1.3, Amylase < 30 L, Lipase 33, CBC w Diff NO MAN DIFF REQ, RBC 4.86, MCV 87.1, MCH 29.8, RDW 13.8, MPV 7.8, Gran % 79.8 H, Lymphocytes % 9.6 L, Monocytes % 7.5, Eosinophils % 2.9, Basophils % 0.2, Absolute Granulocytes 4.9, Absolute Lymphocytes 0.6 L, Absolute Monocytes 0.5, Absolute Eosinophils 0.2, Absolute Basophils 0, PUBS MCHC 34.2 Diagnostic Data EKG Results NSR, 70, Q waves in lead II, III, aVF, normal axis. Other Results SERVICE DATE: 12/10/16 EXAM TYPE: CAT - CT ABD & PELVIS W IV CONTRAST FINDINGS: LUNG BASES: The visualized lung bases are unremarkable. LIVER, GALLBLADDER, AND BILIARY TREE: Status post cholecystectomy. Slight prominence of the intrahepatic biliary tree unchanged compatible with postoperative change without clinical significance. Liver parenchyma is normal. PANCREAS: Unremarkable. SPLEEN: Unremarkable. ADRENAL GLANDS: Unremarkable. KIDNEYS AND URETERS: The kidneys are normal in size, shape, and attenuation. No hydronephrosis, hydroureter, or calculi seen. No perinephric stranding. BLADDER: Normal. GASTROINTESTINAL TRACT: There is scattered diverticulosis throughout the colon. There is a new area of pericolonic stranding in the proximal sigmoid extending over a length of approximately 4 cm consistent with new focus of diverticulitis. The previously noted area of pericolonic inflammatory change in the distal descending colon has cleared. SMALL BOWEL: Normal. STOMACH: Normal. APPENDIX: Normal. ABDOMINAL WALL: No significant hernia is appreciated. LYMPH NODES: Normal. VASCULAR: Moderate arterial calcification throughout, unchanged. PELVIC VISCERA: Unremarkable. OSSEOUS STRUCTURES: Stable postoperative changes related to lumbar fusion at L3-L4. Multilevel spondylosis of the lumbar sacral spine. IMPRESSION: New focus of acute diverticulitis in the proximal sigmoid colon. Clearing of the previously noted diverticulitis in the distal descending colon. Scattered diverticulosis throughout the large bowel. Status post cholecystectomy. Multilevel spondylosis of lumbar sacral spine with postoperative changes related to lumbar fusion at L3-L4 unchanged. Assessment/Plan Assessment: 71-year-old male with a past medical history of hypothyroidism, diverticulitis, BPH, coronary artery disease status post stent placement in December 2013 currently on aspirin and Plavix follows up with Dr. Alejo, hypertension, hyperlipidemia, vsl-qgbmzdn-geiudozax diabetes mellitus presents to the ED with chief complaint of nausea, diarrhea accompanied with left lower quadrant pain. Vitals at the time of admission blood pressure 118/70, respiratory rate 20, pulse 89, afebrile saturating 97% on room air. Physical exam pertinent for dry mucous membranes, and tenderness in left lower abdomen, normal bowel sounds, abdomen soft, and not distended. Labs pertinent for normal white blood cell count 6100, H&H of 14.5/42.3, platelet count 164,000. Serum chemistries revealed sodium of 137, potassium of 4.0, BUN 12 and a creatinine of 1.1. Lactic acid was 1.0. LFTs unremarkable with an AST/ALT of 30/35 and a total bili 1.0. Serum lipase negative at 33 and serum amylase less than 30. UA is pending CT abdomen and pelvis with IV contrast revealed no new focus of acute diverticulitis in the proximal sigmoid colon, clearing of previously noted diverticulitis in the distal descending colon and scattered diverticulosis throughout the large bowel. Of note his last colonoscopy was done by Dr. Pruitt of September 2012 which revealed diverticulosis with no evidence of new plasia with a repeat colonoscopy in 5 years which is next here in 2017. He did have an adenomatous polyp on his colonoscopy in 2006. In the ED he received Unasyn 3000 mg IV 1. Assessment and plan Admit patient to [facility]. #Acute uncomplicated diverticulitis With no evidence of sepsis Start on ceftriaxone and Flagyl IV hydration with fluids for a total of 1 bag Would consider sending for C. difficile and stool culture, ghowever does not have a fever or WBC count. #History of hypertension Continue on metoprolol, losartan #Hyperlipidemia Atorvastatin 20 mg daily #Hypothyroidism - Continue on Synthroid 88 mcg daily - F/U TSH, FT4 #Impaired glucose tolerance - F/U HbA1c - Accuchecks, Novolog SSC #History of coronary artery disease Continue on aspirin 81 mg daily, atorvastatin 20 mg daily, Plavix 75 mg daily, losartan 50 mg daily, metoprolol 25 mg twice a day - Diet Full liquid for now DVT prophylaxis Heparin 5000IU TID subcutaneous daily CODE STATUS Full code As Ranked By This Provider Problem List: 1. Diverticulitis Core Measures/Miscellaneous Acute Coronary Syndrome ACS Diagnosis: No Cerebrovascular Accident CVA/TIA Diagnosis: No Congestive Heart Failure CHF Diagnosis: No Venous Thromboembolism VTE Risk Factors: Age > 40 No [facility] VTE prophylaxis d/t: No contraindications No VTE Pharm Prophylaxis d/t: No contraindications VTE Diagnosis: No VTE Type: NONE VTE Confirmed by (Test): NONE Severe Sepsis Severe Sepsis Present: No Septic Shock Septic Shock Present: No Miscellaneous Documentation Attending Case Discussed With: Dr. Ma Primary Care Physician: KEEGAN PURI MD Patient sees these Specialists Dr. Maxwell D'Funk Dr. Brendan Pruitt Level of Patient Care: General Medicine Resident Review Statement Resident Statement: admitted by resident BARBER FOLEY,SORIN 12/10/16 1351: Attending MD Review Statement Attending Statement Attending MD Statement: examined this patient, discuss w/resident/PA/WOOD BOATBUILDER APPRENTICE, agreed w/resident/PA/WOOD BOATBUILDER APPRENTICE, discussed with family, reviewed EMR data (avail), discussed with nursing Attending Assessment/Plan: Patient 71-year-old male with past history of diverticulitis treated with inpatient admission in August last year. In early November he was treated with oral antibiotic for another flareup. 3 days ago he was treated with oral Cipro and Flagyl left lower quadrant pain. He returns today for leg resolution of pain and also having intermittent watery diarrhea. He had some chills but denies any fever. His vital signs are currently stable. Abdomen has mild discomfort left lower quadrant. Chest exam is clear. There is no edema. CBC shows mild left shift but WBC count is normal. Chemistry is within normal limits. Urinalysis clear. CT abdomen and pelvis New focus of acute diverticulitis in the proximal sigmoid colon. Clearing of the previously noted diverticulitis in the distal descending colon. Scattered diverticulosis throughout the large bowel. Status post cholecystectomy. Multilevel spondylosis of lumbar sacral spine with postoperative changes related to lumbar fusion at L3-L4 unchanged. Assessment * Acute diverticulitis left sigmoid area * Abdominal pain secondary to diverticulitis * Hyperlipidemia * CAD status post stenting Plan * Continue ceftriaxone and Flagyl * Advance diet as tolerated * Continue other home medications
--- NOTE | 2016-12-10 11:47 | NUR ---
UNASYN INFUSING PER ORDER
--- NOTE | 2016-12-10 12:14 | NUR ---
FS 94 AT THIS TIME , HOUSE STAFF AT BEDSIDE
--- NOTE | 2016-12-10 12:22 | NUR ---
PT ASSIGNED ROOM 205.
--- NOTE | 2016-12-10 12:32 | NUR ---
REPORT CALLED TO FLOOR, TRANSPORT CALLED
[2016-12-10 13:21] VITALS: BP 122/62
--- NOTE | 2016-12-10 13:51 | Admission Certification ---
Admission Certification Certification Statement - As attending physician, I certify that at the time of - admission, based on clinical presentation, severity of - symptoms, need for further diagnostic testing and - therapeutic interventions, and risk of adverse outcomes - without in-hospital treatment, in my clinical assessment, - this patient requires an acute hospital stay for a minimum - of two nights or longer. I have also considered psychsocial - factors such as support system, advanced age, financial - issues, cognitive issues, and failed out-patient treatments, - past re-admission history, safety of patient, and lack of - compliance as applicable. Specific rationale supporting this admission is: Acute diverticulitis
[2016-12-10 22:57] VITALS: BP 128/66
[2016-12-11 06:44] VITALS: BP 116/70
[2016-12-11 08:03] LABS: ABSOLUTE BASOPHIL COUNT 0 /CUMM (0.0-0.2); ABSOLUTE EOSINOPHIL COUNT 0.2 /CUMM (0.0-0.7); ABSOLUTE GRANULOCYTE CT 2.7 /CUMM (1.4-6.5); ABSOLUTE LYMPH COUNT 0.7 /CUMM (1.2-3.4); ABSOLUTE MONOCYTE COUNT 0.4 /CUMM (0.10-0.60); BASOPHIL % 0.4 % (0.0-2.0); EOSINOPHIL % 5.6 % (0-5); GRANULOCYTE % 65.6 % (42.2-75.2); MEAN CORPUSCULAR HGB CONC 34.6 G/DL (33.0-37.0); MEAN CORPUSCULAR VOLUME 86.7 FL (80.0-94.0); MEAN PLATELET VOLUME 7.8 FL (7.4-10.4); PLATELET COUNT 137 /CUMM (130-400); RBC DISTRIBUTION WIDTH 14.2 % (11.5-14.5); RED BLOOD CELL CT 4.29 /CUMM (4.70-6.10)
[2016-12-11 08:54] LABS: HEMATOCRIT 37.2 % (42-52)
--- NOTE | 2016-12-11 09:37 | PN- Att Addend ---
Attending Addendum Attending Brief Note Attending MD Statement: examined this patient, discuss w/resident/PA/SPAR FINISHER, agreed w/resident/PA/SPAR FINISHER, discussed with family, reviewed EMR data (avail), discussed with nursing Vital Signs Date Time Temp Pulse Resp B/P Pulse O2 O2 Flow FiO2 Ox Delivery Rate 12/11 0832 78 120/80 12/11 0644 96.4 67 18 116/70 94 Room Air / 2257 98.8 81 20 128/66 95 Room Air / 2153 82 128/66 / 2153 82 128/66 / 1321 98.1 72 20 122/62 94 Room Air / 1228 97.9 70 18 118/74 99 Room Air / 1004 98.1 80 18 120/68 98 Room Air Intake & Output 12/11 1600 12/11 0800 12/11 0000 Intake Total 490 1620 Output Total 250 Balance 240 1620 Intake, IV 250 120 Intake, Oral 240 1500 Output, Urine 250 Attending Assessment/Plan: Patient denies any fever. He continues to have left lower quadrant abdominal pain especially on moving. His vital signs are currently stable. Abdomen has mild discomfort left lower quadrant. Chest exam is clear. There is no edema. Laboratory Tests 12/11 12/10 0643 1130 Chemistry Sodium (137 - 145 mmol/L) 139 Potassium (3.5 - 5.1 mmol/L) 4.1 Chloride (98 - 107 mmol/L) 103 Carbon Dioxide (22 - 30 mmol/L) 29 Anion Gap (5 - 16) 6 BUN (9 - 20 mg/dL) 10 Creatinine (0.7 - 1.2 mg/dL) 1.0 Estimated GFR (>60 ml/min) > 60 BUN/Creatinine Ratio (7 - 25 %) 10.0 Hematology CBC w Diff NO MAN DIFF REQ WBC (4.8 - 10.8 /CUMM) 4.0 L RBC (4.70 - 6.10 /CUMM) 4.29 L Hgb (14.0 - 18.0 G/DL) 12.9 L Hct (42 - 52 %) 37.2 L MCV (80.0 - 94.0 FL) 86.7 MCH (27.0 - 31.0 PG) 30.0 RDW (11.5 - 14.5 %) 14.2 Plt Count (130 - 400 /CUMM) 137 MPV (7.4 - 10.4 FL) 7.8 Gran % (42.2 - 75.2 %) 65.6 Lymphocytes % (20.5 - 51.1 %) 18.0 L Monocytes % (1.7 - 9.3 %) 10.4 H Eosinophils % (0 - 5 %) 5.6 H Basophils % (0.0 - 2.0 %) 0.4 Absolute Granulocytes (1.4 - 6.5 /CUMM) 2.7 Absolute Lymphocytes (1.2 - 3.4 /CUMM) 0.7 L Absolute Monocytes (0.10 - 0.60 /CUMM) 0.4 Absolute Eosinophils (0.0 - 0.7 /CUMM) 0.2 Absolute Basophils (0.0 - 0.2 /CUMM) 0 PUBS MCHC (33.0 - 37.0 G/DL) 34.6 Urines Urine Color (YEL,AMB,STR) YEL Urine Clarity (CLEAR) CLEAR Urine pH (5.0 - 8.0) 6.5 Ur Specific [place] (1.001 - 1.035) <= 1.005 Urine Protein (NEG,<30 MG/DL) NEG Urine Ketones (NEG) NEG Urine Nitrite (NEG) NEG Urine Bilirubin (NEG) NEG Urine Urobilinogen (0.1 - 1.0 EU/dl) 0.2 Ur Leukocyte Esterase (NEG) NEG Ur Microscopic EXAM NOT REQUIRED Urine Hemoglobin (NEG) NEG Urine Glucose (N MG/DL) NEG 12/10 1120 Chemistry Lactic Acid Cancelled Microbiology Date/Time Procedure - Status Source Growth 12/10 1226 Cryptosporidium Antigen - CAN GI Cancelled: Cancelled via OE: Per MD Decision 12/10 122 Giardia Antigen (GREGOR) - CAN GI Cancelled: Cancelled via OE: Per MD Decision 12/10 122 Yersinia Culture - CAN STOOL Cancelled: Cancelled via OE: Per MD Decision 12/10 122 Clostridium difficile Toxin A & B - CAN STOOL Cancelled: Cancelled via OE: Per MD Decision CT abdomen and pelvis on admission New focus of acute diverticulitis in the proximal sigmoid colon. Clearing of the previously noted diverticulitis in the distal descending colon. Scattered diverticulosis throughout the large bowel. Status post cholecystectomy. Multilevel spondylosis of lumbar sacral spine with postoperative changes related to lumbar fusion at L3-L4 unchanged. Assessment * Acute diverticulitis left sigmoid area * Abdominal pain secondary to diverticulitis * Hyperlipidemia * CAD status post stenting Plan * Continue ceftriaxone and Flagyl * Advance diet as tolerated * Continue other home medications
--- NOTE | 2016-12-11 10:35 | PN- Housestaff ---
Subjective Follow-up For: Acute diverticulitis left sigmoid area Abdominal pain secondary to diverticulitis Complaints: pain in the LLQ Subjective: Patient has improved since yesterday. No bowel movements overnight. Continues to have mild discomfort in the left lower quadrant area. Is tolerating liquid diet well. Review of Systems Constitutional: Reports: malaise, weakness. EENTM: Reports: no symptoms. Cardiovascular: Reports: no symptoms. Respiratory: Reports: no symptoms. Gastrointestinal: Reports: abdominal pain. Genitourinary: Reports: no symptoms. Musculoskeletal: Reports: no symptoms. Skin: Reports: no symptoms. Objective Last 24 Hrs of Vital Signs/I&O Vital Signs Date Time Temp Pulse Resp B/P Pulse O2 O2 Flow FiO2 Ox Delivery Rate 12/11 0832 78 120/80 12/11 0644 96.4 67 18 116/70 94 Room Air 12/10 2257 98.8 81 20 128/66 95 Room Air 12/10 2153 82 128/66 12/10 2153 82 128/66 12/10 1321 98.1 72 20 122/62 94 Room Air 12/10 1228 97.9 70 18 118/74 99 Room Air Intake & Output 12/11 1600 12/11 0800 12/11 0000 Intake Total 490 1620 Output Total 250 Balance 240 1620 Intake, IV 250 120 Intake, Oral 240 1500 Number 1 Bowel Movements Output, Urine 250 Physical Exam General Appearance: Alert, Oriented X3, Cooperative, Mild Distress Skin: No Rashes, No Breakdown, No Significant Lesion HEENT: Atraumatic, PERRLA, EOMI Neck: Supple, No JVD Lymphatic: Cervical nl Cardiovascular: Regular Rate, Normal S1, Normal S2 Lungs: Clear to Auscultation, Normal Air Movement Abdomen: Normal Bowel Sounds, LLQ TENDERNESS, NO PERITONEAL SIGNS Neurological: Normal Speech, Normal Tone, Sensation Intact Extremities: No Clubbing, No Cyanosis, No Edema Current Medications: Current Medications Sig/Dionne Start time Last Medication Dose Route Stop Time Status Admin Acetaminophen 650 MG Q6 PRN 12/10 1200 AC PO Acetaminophen 1,000 MG Q6P PRN 12/10 1200 AC IV Ampicillin Sodium/ 3,000 MG ONCE ONE 12/10 1145 DC 12/10 Sulbactam Sodium IV 12/10 1214 1146 Sodium Chloride 100 ML Ampicillin Sodium/ 0 .STK-MED ONE 12/10 1143 DC Sulbactam Sodium .ROUTE Aspirin 81 MG QPM 12/10 2200 AC 12/10 PO 2152 Atorvastatin Calcium 20 MG 2200 12/10 2200 AC 12/10 PO 2153 Ceftriaxone Sodium 1,000 MG DAILY 12/11 1000 AC 12/11 IV 0833 Clopidogrel Bisulfate 75 MG DAILY 12/11 1000 AC 12/11 PO 0832 Heparin Sodium 5,000 UNIT Q8 12/10 1400 AC 12/11 (Porcine) SC 0528 Insulin Aspart 0 TIDAC 12/10 1700 AC SC Levothyroxine Sodium 0.088 MG DAILY 12/11 1000 AC 12/11 PO 0832 Losartan Potassium 50 MG DAILY 12/11 1000 AC 12/11 PO 0832 Melatonin 5 MG AT BEDTIME 12/10 2200 AC 12/10 PO 2153 Metoprolol Tartrate 25 MG BID 12/10 2200 AC 12/11 PO 0832 Metronidazole 500 MG IQ8 12/10 1600 AC 12/11 N/A 1 UNIT IV 0754 Oxycodone/ 2 TAB Q6P PRN 12/10 1200 DC Acetaminophen PO Tamsulosin HCl 0.4 MG DAILY 12/11 1000 DC PO Tamsulosin HCl 0.4 MG QPM 12/10 2200 AC 12/10 PO 2153 Tramadol HCl 50 MG Q6P PRN 12/10 1230 AC 12/10 PO 1639 Last 24 Hrs of Lab/Shakir Results Last 24 Hrs of Labs/Mics: Laboratory Tests 12/11/16 0643: Anion Gap 6, Estimated GFR > 60, BUN/Creatinine Ratio 10.0, CBC w Diff NO MAN DIFF REQ, RBC 4.29 L, MCV 86.7, MCH 30.0, RDW 14.2, MPV 7.8, Gran % 65.6, Lymphocytes % 18.0 L, Monocytes % 10.4 H, Eosinophils % 5.6 H, Basophils % 0.4, Absolute Granulocytes 2.7, Absolute Lymphocytes 0.7 L, Absolute Monocytes 0.4, Absolute Eosinophils 0.2, Absolute Basophils 0, PUBS MCHC 34.6 12/10/16 1130: Urine Color YEL, Urine Clarity CLEAR, Urine pH 6.5, Ur Specific [place] <= 1.005 , Urine Protein NEG, Urine Ketones NEG, Urine Nitrite NEG, Urine Bilirubin NEG, Urine Urobilinogen 0.2, Ur Leukocyte Esterase NEG, Ur Microscopic EXAM NOT REQUIRED, Urine Hemoglobin NEG, Urine Glucose NEG 12/10/16 1120: Lactic Acid Cancelled Microbiology 12/10 1227 GI: Cryptosporidium Antigen - CAN Cancelled: Cancelled via OE: Per Decision 12/10 1227 GI: Giardia Antigen (SHAKIR) - CAN Cancelled: Cancelled via OE: Per Decision 12/10 1227 STOOL: Yersinia Culture - CAN Cancelled: Cancelled via OE: Per Decision 12/10 1227 STOOL: Clostridium difficile Toxin A & B - CAN Cancelled: Cancelled via OE: Per MD Decision Assessment/Plan Assessment: 71-year-old male with a past medical history of hypothyroidism, diverticulitis, BPH, coronary artery disease status post stent placement in December 2013 currently on aspirin and Plavix follows up with Dr. Alejo, hypertension, hyperlipidemia, [id number] diabetes mellitus presents to the ED with chief complaint of nausea, diarrhea accompanied with left lower quadrant pain. Plan #Acute uncomplicated diverticulitis -Mild left lower quadrant discomfort persists -No diarrhea overnight -No fevers, no white count -Continue on ceftriaxone and Flagyl day 2 -Tolerating liquid diet. We'll advance to regular diet. Continue tramadol for pain control -Since patient has been having recurrent episodes of diverticulitis, will consider surgical evaluation to to see if he is a candidate for colectomy. #History of hypertension -Continue on metoprolol, losartan #Hyperlipidemia -Atorvastatin 20 mg daily #Hypothyroidism - Continue on Synthroid 88 mcg daily - Thyroid studies normal #History of coronary artery disease Continue on aspirin 81 mg daily, atorvastatin 20 mg daily, Plavix 75 mg daily, losartan 50 mg daily, metoprolol 25 mg twice a day - Diet Regular diet DVT prophylaxis Heparin 5000IU TID subcutaneous daily CODE STATUS Full code Problem List: 1. Diverticulitis Pain Ratin Pain Location: ABDOMEN Pain Goal: Pain 4 or less Pain Plan: TRAMADOL Tomorrow's Labs & Rationales: NONE
[2016-12-11 13:52] VITALS: BP 112/60
--- NOTE | 2016-12-11 14:09 | Cons- General Surgery ---
General Information and HPI Consulting Request Date of Consult: 12/11/16 Requested By: BARBER FOLEY,SORIN History of Present Illness: I was asked to see this patient in regards to his recurrent diverticulitis. In reviewing his records, he has had 3 episodes of acute diverticulitis in the past 4 months. He had one prior episode of diverticulitis in 2014. All episodes of diverticulitis or proceeded by constipation followed by diarrhea. There is a progression of suprapubic abdominal pain that progresses to left lower quadrant pain and tenderness. All previous attacks have been managed medically with antibiotics. He was last seen in the November was admitted 4 days for acute sigmoid diverticulitis. He was discharged and felt well for a few weeks. However he had recurrence of his symptoms which prompted return to the emergency room. In all, there have been for CT scans of his abdomen pelvis in the past 2 years performed. I have looked at the images and reviewed all of them. Allergies/Medications Allergies: Coded Allergies: No Known Allergies (08/19/16) Home Med List: Ascorbate Calcium (Vitamin C) 500 MG TABLET 1 TAB PO DAILY SUPPLEMENT ( Reported) Aspirin (Aspirin*) 81 MG TAB.CHEW 1 TAB PO QPM HEART HEALTH (Reported) Cholecalciferol (Vitamin D3) 1,000 UNIT TABLET 2 TAB PO DAILY SUPPLEMENT ( Reported) Clopidogrel Bisulfate (Clopidogrel) 75 MG TABLET 1 TAB PO DAILY BLOOD THINNER (Reported) Hyoscyamine Sulfate 0.125 MG TAB.SUBL 1 TAB SL 4 TIMES/DAY GI (Reported) Levothyroxine Sodium 88 MCG TABLET 1 TAB PO DAILY THYROID (Reported) Losartan Potassium 50 MG TABLET 1 TAB PO DAILY HEART (Reported) Metformin HCl 500 MG TABLET 1 TAB PO BID DIABETES (Reported) Metoprolol Succinate 25 MG TAB 1 TAB PO BID HEART (Reported) Multivitamin (Daily Multiple Vitamin) 1 EACH TABLET 1 TAB PO DAILY SUPPLEMENT (Reported) [place]-3 Fatty Acids/Fish Oil (Fish Oil 1,000 MG Capsule) 340 MG-1,000 MG CAPSULE 1 CAP PO BID SUPPLEMENT (Reported) Simvastatin (Simvastatin*) 40 MG TABLET 1 TAB PO QPM CHOLESTEROL (Reported) Tamsulosin HCl (Flomax) 0.4 MG CAP.ER.24H 1 CAP PO DAILY BPH (Reported) Current Medications: Current Medications Sig/Dionne Start time Last Medication Dose Route Stop Time Status Admin Acetaminophen 650 MG Q6 PRN 12/10 1200 AC PO Acetaminophen 1,000 MG Q6P PRN 12/10 1200 AC IV Aspirin 81 MG QPM 12/10 2200 AC 12/10 PO 2152 Atorvastatin Calcium 20 MG 2200 12/10 2200 AC 12/10 PO 2153 Ceftriaxone Sodium 1,000 MG DAILY 12/11 1000 AC 12/11 IV 0833 Clopidogrel Bisulfate 75 MG DAILY 12/11 1000 AC 12/11 PO 0832 Heparin Sodium 5,000 UNIT Q8 12/10 1400 AC 12/11 (Porcine) SC 1259 Insulin Aspart 0 TIDAC 12/10 1700 AC 12/11 SC 1259 Levothyroxine Sodium 0.088 MG DAILY 12/11 1000 AC 12/11 PO 0832 Losartan Potassium 50 MG DAILY 12/11 1000 AC 12/11 PO 0832 Melatonin 5 MG AT BEDTIME 12/10 2200 AC 12/10 PO 2153 Metoprolol Tartrate 25 MG BID 12/10 2200 AC 12/11 PO 0832 Metronidazole 500 MG IQ8 12/10 1600 AC 12/11 N/A 1 UNIT IV 0754 Tamsulosin HCl 0.4 MG QPM 12/10 2200 AC 12/10 PO 2153 Tramadol HCl 50 MG Q6P PRN 12/10 1230 AC 12/10 PO 1639 Past History Medical History Neurological: NONE EENT: sinusitis, HEMOFACIAL SPASM Cardiovascular: hypertension, hyperlipidemia, cad s/p stent in 12/18 Respiratory: bronchitis Gastrointestinal: diverticulitis Hepatic: CHOLECYSTECTOMY Renal: NONE Musculoskeletal: osteoarthritis Psychiatric: NONE Endocrine: diabetes, hypothyroidism Blood Disorders: NONE Cancer(s): NONE 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 Home Services at Home: None Smoking Status: Never Smoked ETOH Use: denies use Illicit Drug Use: denies illicit drug use Functional Ability ADLs Independent: dressing, eating, toileting, bathing. Ambulation: independent Review of Systems Review of Systems: No chest pain, no dyspnea on exertion. Abdominal pain per HPI. Minor joint arthritis, nonlimiting. Remainder 12 points negative Exam & Diagnostic Data Vital Signs and I&O Vital Signs Date Time Temp Pulse Resp B/P Pulse O2 O2 Flow FiO2 Ox Delivery Rate 12/11 1352 98.0 73 18 112/60 96 Room Air 12/11 0832 78 120/80 03/07 0644 96.4 67 18 116/70 94 Room Air 12/10 2256 98.8 81 20 128/66 95 Room Air 12/10 2152 82 128/66 12/10 2152 82 128/66 Intake & Output 12/11 1600 12/11 0800 12/11 0000 12/10 1600 12/10 0800 12/10 0000 Intake Total 490 1620 1700 Output Total 250 Balance 240 1620 1700 Intake, IV 773 111 3230 Intake, Oral 240 1500 600 Number 1 Bowel Movements Output, Urine 250 Patient 203 lb 203 lb Weight Physical Exam: Gen.: He looks his stated age and is of overweight habitus. He is in no distress and has just completed eating his first solid meal. Alert and oriented HEENT: Anicteric PERRL EOMI Chest: Nontender normal respiratory excursion respiratory effort Abdomen: Soft and tender in suprapubic region and left lower quadrant without involuntary guarding no mass no hernias well-healed right upper quadrant scar Extremities: No cyanosis clubbing or edema Last 24 Hours of Labs: Laboratory Tests 12/11 642 Chemistry Sodium (137 - 145 mmol/L) 139 Potassium (3.5 - 5.1 mmol/L) 4.1 Chloride (98 - 107 mmol/L) 103 Carbon Dioxide (22 - 30 mmol/L) 29 Anion Gap (5 - 16) 6 BUN (9 - 20 mg/dL) 10 Creatinine (0.7 - 1.2 mg/dL) 1.0 Estimated GFR (>60 ml/min) > 60 BUN/Creatinine Ratio (7 - 25 %) 10.0 Hematology CBC w Diff NO MAN DIFF REQ WBC (4.8 - 10.8 /CUMM) 4.0 L RBC (4.70 - 6.10 /CUMM) 4.29 L Hgb (14.0 - 18.0 G/DL) 12.9 L Hct (42 - 52 %) 37.2 L MCV (80.0 - 94.0 FL) 86.7 MCH (27.0 - 31.0 PG) 30.0 RDW (11.5 - 14.5 %) 14.2 Plt Count (130 - 400 /CUMM) 137 MPV (7.4 - 10.4 FL) 7.8 Gran % (42.2 - 75.2 %) 65.6 Lymphocytes % (20.5 - 51.1 %) 18.0 L Monocytes % (1.7 - 9.3 %) 10.4 H Eosinophils % (0 - 5 %) 5.6 H Basophils % (0.0 - 2.0 %) 0.4 Absolute Granulocytes (1.4 - 6.5 /CUMM) 2.7 Absolute Lymphocytes (1.2 - 3.4 /CUMM) 0.7 L Absolute Monocytes (0.10 - 0.60 /CUMM) 0.4 Absolute Eosinophils (0.0 - 0.7 /CUMM) 0.2 Absolute Basophils (0.0 - 0.2 /CUMM) 0 PUBS MCHC (33.0 - 37.0 G/DL) 34.6 Imaging Results: CT scans of the abdomen pelvis were personally reviewed. The findings show severe diverticulosis of the sigmoid colon. There are 3 separate areas of inflammatory changes on CT scans over the past 2 years. All involved the sigmoid colon but are in different areas. There is no free air no free fluid no abscess Assessment/Plan Assessment/Plan Recurrent acute sigmoid diverticulitis. There is no emergent need for surgical intervention. Given the chronicity of his symptoms, one could consider elective sigmoid resection once the inflammation has resolved. Typically one would wait 6 weeks from the most recent attack of acute diverticulitis prior to considering elective sigmoid resection with primary anastomosis. However given the diffuse and changing areas of inflammatory changes on CT scan, I would give him a trial of diet manipulation once more prior to recommending surgery. For now continue medical treatment with antibiotics and low residue diet. After 2 weeks he should return to a high-fiber diet and should resume Metamucil intake daily. After discharge he should follow up with his physician ophthalmologist to schedule colonoscopy. This should be performed as he was due for repeat colonoscopy anyway. Furthermore it will help confirm the diagnosis of diverticulitis and exclude an alternative etiology to the inflammatory changes. I would recommend colonoscopy prior to surgical intervention as well. Consult Acknowledgment - Thank you for your consult request.
[2016-12-11 22:00] VITALS: BP 118/64
[2016-12-12 07:28] VITALS: BP 126/70
--- NOTE | 2016-12-12 10:49 | PN- Att Addend ---
Attending Addendum Attending Brief Note Attending MD Statement: examined this patient, discuss w/resident/PA/TOUR AGENT, agreed w/resident/PA/TOUR AGENT, discussed with family, reviewed EMR data (avail), discussed with nursing. Patient continues to have mild to moderate left quadrant pain but no nausea vomiting or fever. He also has a few bouts of diarrhea. Vital Signs Date Time Temp Pulse Resp B/P Pulse O2 O2 Flow FiO2 Ox Delivery Rate 12/13 727 96.5 67 18 126/70 94 Room Air 12/11 2200 98.7 74 16 118/64 96 Room Air 12/11 2119 74 118/64 12/11 2119 74 118/64 12/11 1352 98.0 73 18 112/60 96 Room Air Intake & Output 12/12 1600 12/12 0800 12/12 0000 Intake Total 1020 Output Total Balance 1020 Intake, IV 220 Intake, Oral 800 Number 0 1 Bowel Movements Exam: General: Patient awake alert oriented without any distress CVS: S1 plus S2 without any murmur or gallops Chest: Few scattered crepitation without any wheeze. There is no respiratory distress. Abdomen: Soft obese with the mild tenderness in left lower quadrant area, bowel sound present, no guarding or rebound [employer]: Awake alert oriented without any focal neuro deficit and follows command appropriately Extremities: No edema; no clubbing or cyanosis noted No new labs done today. Assessment * Acute diverticulitis left sigmoid area * Abdominal pain secondary to diverticulitis * Hyperlipidemia * CAD status post stenting Plan * Continue ceftriaxone and Flagyl * Increase simulation * Continue other home medications * Will plan for discharge home tomorrow * Surgical consultation note was reviewed. * Patient is recommended to have outpatient colonoscopy; please add surgical and GI follow-up as outpatient to his discharge paperwork
[2016-12-12 14:47] VITALS: BP 120/52
--- NOTE | 2016-12-12 17:00 | PN- Housestaff ---
Subjective Follow-up For: Acute diverticulitis left sigmoid area Abdominal pain secondary to diverticulitis Complaints: no complaints Subjective: Is much better today. One episode of watery diarrhea yesterday. Tolerating diet well. Afebrile overnight Review of Systems Constitutional: Reports: no symptoms. EENTM: Reports: no symptoms. Cardiovascular: Reports: no symptoms. Respiratory: Reports: no symptoms. Gastrointestinal: Reports: abdominal pain. Genitourinary: Reports: no symptoms. Musculoskeletal: Reports: no symptoms. Skin: Reports: no symptoms. Objective Last 24 Hrs of Vital Signs/I&O Vital Signs Date Time Temp Pulse Resp B/P Pulse O2 O2 Flow FiO2 Ox Delivery Rate 12/12 1447 98.0 67 20 120/52 97 12/12 0728 96.5 67 18 126/70 94 Room Air 12/11 2200 98.7 74 16 118/64 96 Room Air 12/11 2118 74 118/64 12/11 2119 74 118/64 Intake & Output 12/12 1600 12/12 0800 12/12 0000 Intake Total 1000 1020 Output Total Balance 1000 1020 Intake, IV 100 220 Intake, Oral 900 800 Number 1 0 1 Bowel Movements Physical Exam General Appearance: Alert, Oriented X3, Cooperative, No Acute Distress Skin: No Rashes, No Breakdown, No Significant Lesion HEENT: Atraumatic, PERRLA, EOMI Neck: Supple, No JVD Lymphatic: Cervical nl Cardiovascular: Regular Rate, Normal S1, Normal S2, No Murmurs Lungs: Clear to Auscultation, Normal Air Movement Abdomen: Normal Bowel Sounds, Soft, tenderness in the left lower quadrant Neurological: Normal Speech, Normal Tone Extremities: No Clubbing, No Cyanosis, No Edema, Normal Pulses Current Medications: Current Medications Sig/Dionne Start time Last Medication Dose Route Stop Time Status Admin Acetaminophen 650 MG .STK-MED ONE 12/11 2006 DC PO 12/11 2006 Acetaminophen 650 MG Q6 PRN 12/10 1200 AC 12/11 PO 2008 Acetaminophen 1,000 MG Q6P PRN 12/10 1200 AC IV Aspirin 81 MG QPM 12/100 AC 12/11 PO 211 Atorvastatin Calcium 20 MG 2200 12/10 2200 AC 12/11 PO 211 Ceftriaxone Sodium 1,000 MG DAILY 12/11 1000 AC 12/12 IV 075 Clopidogrel Bisulfate 75 MG DAILY 12/11 1000 AC 12/12 PO 0757 Heparin Sodium 5,000 UNIT Q8 12/12 0600 AC (Porcine) SC Heparin Sodium 5,000 UNIT .STK-MED ONE 12/11 1918 DC (Porcine) IV 12/11 191 Heparin Sodium 5,000 UNIT Q8 12/10 1400 DC 12/12 (Porcine) SC 0543 Insulin Aspart 0 TIDAC 12/10 1700 AC 12/11 SC 1259 Levothyroxine Sodium 0.088 MG DAILY 12/11 1000 AC 12/12 PO 0757 Losartan Potassium 50 MG DAILY 12/11 1000 AC 12/12 PO 0757 Melatonin 5 MG AT BEDTIME 12/10 2200 AC 12/11 PO 2119 Metoprolol Tartrate 25 MG BID 12/10 2200 AC 12/12 PO 0757 Metronidazole 500 MG IQ8 12/10 1600 AC 12/12 N/A 1 UNIT IV 1623 Patient Medication 1 ED .STK-MED ONE 12/12 1345 DC Teaching ED 12/12 1346 Tamsulosin HCl 0.4 MG QPM 12/10 2200 AC 12/11 PO 2119 Tramadol HCl 50 MG Q6P PRN 12/10 1230 AC 12/10 PO 1639 Last 24 Hrs of Lab/Shakir Results Last 24 Hrs of Labs/Mics: hj Assessment/Plan Assessment: 71-year-old male with a past medical history of hypothyroidism, diverticulitis, BPH, coronary artery disease status post stent placement in December 2013 currently on aspirin and Plavix follows up with Dr. Alejo, hypertension, hyperlipidemia, [id number] diabetes mellitus presents to the ED with chief complaint of nausea, diarrhea accompanied with left lower quadrant pain. Plan #Acute uncomplicated diverticulitis -Mild left lower quadrant discomfort persists -No diarrhea overnight -No fevers, no white count -Continue on ceftriaxone and Flagyl day 3 -Tolerating a low fiber diet. -Surgery evaluated the patient and recommends diet modification and repeat colonoscopy post discharge. Once the inflammation subsides, after GI evaluation , sigmoid resection can be planned electively. There is no need of emergent surgical intervention at thispoint. #History of hypertension -Continue on metoprolol, losartan #Hyperlipidemia -Atorvastatin 20 mg daily #Hypothyroidism - Continue on Synthroid 88 mcg daily - Thyroid studies normal #History of coronary artery disease Continue on aspirin 81 mg daily, atorvastatin 20 mg daily, Plavix 75 mg daily, losartan 50 mg daily, metoprolol 25 mg twice a day - Diet Regular diet DVT prophylaxis Heparin 5000IU TID subcutaneous daily CODE STATUS Full code Problem List: 1. Diverticulitis Pain Ratin Pain Location: abdomen Pain Goal: Remain pain free Pain Plan: TRAMADOL Tomorrow's Labs & Rationales: none required
--- NOTE | 2016-12-12 17:03 | Patient Discharge Instructions ---
Discharge Instructions General Discharge Information You were seen/treated for: Acute diverticulitis Special Instructions: # Please continue to take ciprofloxacin and flagyl for 7 more days( as per instructions on your bottle) # please follow-up with risk consulting treasury director within 1 week post discharge.You will need to have repeat colonoscopy # please see surgeon Dr. Mckinley within 2 weeks of discharge. #Please continue low fiber diet for 2 weeks, followed by high fiber diet. Diet Recommended Diet: low fiber diet for 2 weeks, followed by high fiber after that Activity Full Activity/No Limits: Yes (as tolerated) Acute Coronary Syndrome Inclusion Criteria At DC or during hospital stay patient has or had the following: ACS DIAGNOSIS No Discharge Core Measures Meds if any: Prescribed or Continued at Discharge Meds if any: NOT Prescribed or Continued at Discharge Congestive Heart Failure Inclusion Criteria At DC or during hospital stay patient has or had the following: CHF DIAGNOSIS No Discharge Core Measures Meds if any: Prescribed or Continued at Discharge Meds if any: NOT Prescribed or Continued at Discharge Cerebrovascular accident Inclusion Criteria At DC or during hospital stay patient has or had the following: CVA/TIA Diagnosis No Discharge Core Measures Meds if any: Prescribed or Continued at Discharge Meds if any: NOT Prescribed or Continued at Discharge Venous thromboembolism Inclusion Criteria VTE Diagnosis No VTE Type NONE VTE Confirmed by (Test) NONE Discharge Core Measures - Per Current guidelines, there needs to be overlap - treatment for the first 5 days of Warfarin therapy. - If discharged on Warfarin prior to 5 days of - overlap therapy, the patient will need to be - assessed for post discharge needs including - *Post discharge parental anticoagulation - *Warfarin and/or parental anticoagulation education - *Follow up date to check INR post discharge At least 5 days overlap therapy as Inpatient No Meds if any: Prescribed or Continued at Discharge Note: Overlap Therapy is Warfarin and Anticoagulant Meds if any: NOT Prescribed or Continued at Discharge
[2016-12-12 21:58] VITALS: BP 140/68
[2016-12-13 07:17] VITALS: BP 130/70
--- NOTE | 2016-12-13 09:13 | PN- Housestaff ---
Subjective Follow-up For: Acute diverticulitis left sigmoid area Abdominal pain secondary to diverticulitis Complaints: IMPROVED ABDOMINAL PAIN Subjective: Patient is feeling much better today. Decreased abdominal pain. Is able to tolerate diet. Review of Systems Constitutional: Reports: no symptoms. EENTM: Reports: no symptoms. Cardiovascular: Reports: no symptoms. Respiratory: Reports: no symptoms. Gastrointestinal: Reports: abdominal pain. Genitourinary: Reports: no symptoms. Musculoskeletal: Reports: no symptoms. Skin: Reports: no symptoms. Objective Last 24 Hrs of Vital Signs/I&O Vital Signs Date Time Temp Pulse Resp B/P Pulse O2 O2 Flow FiO2 Ox Delivery Rate 12/13 716 96.0 72 18 130/70 93 Room Air 12/12 2158 97.1 75 18 140/68 96 Room Air 12/12 2117 78 140/68 12/12 211 78 140/68 12/12 1447 98.0 67 20 120/52 97 Intake & Output 12/13 1600 12/13 0800 12/13 0000 Intake Total 100 900 Output Total Balance 100 900 Intake, IV 100 100 Intake, Oral 800 Number 1 Bowel Movements Physical Exam General Appearance: Alert, Oriented X3, Cooperative, No Acute Distress Skin: No Rashes, No Breakdown, No Significant Lesion HEENT: Atraumatic, PERRLA, EOMI Neck: No JVD Lymphatic: Cervical nl Cardiovascular: Regular Rate, Normal S1, Normal S2, No Murmurs Lungs: Clear to Auscultation, Normal Air Movement Abdomen: Normal Bowel Sounds, Soft, MILD TENDERNESS IN THE LEFT LOWER QUADRANT Neurological: Normal Gait, Normal Speech, Strength at 5/5 X4 Ext, Normal Tone Extremities: No Clubbing, No Cyanosis, No Edema Current Medications: Current Medications Sig/Dionne Start time Last Medication Dose Route Stop Time Status Admin Acetaminophen 650 MG Q6 PRN 12/10 1200 AC 12/11 PO 2008 Acetaminophen 1,000 MG Q6P PRN 12/10 1200 AC IV Aspirin 81 MG QPM 12/10 2199 AC 12/12 PO 2116 Atorvastatin Calcium 20 MG 0 12/10 2200 AC 12/12 PO 2116 Ceftriaxone Sodium 1,000 MG DAILY 12/11 1000 AC 12/13 IV 0759 Clopidogrel Bisulfate 75 MG DAILY 12/11 1000 AC 12/13 PO 0800 Heparin Sodium 5,000 UNIT Q8 12/12 0600 AC (Porcine) SC Insulin Aspart 0 TIDAC 12/10 1700 AC 12/11 SC 1259 Levothyroxine Sodium 0.088 MG DAILY 12/11 1000 AC 12/13 PO 0800 Losartan Potassium 50 MG DAILY 12/11 1000 AC 12/13 PO 0800 Melatonin 5 MG AT BEDTIME 12/10 2200 AC 12/12 PO 2117 Metoprolol Tartrate 25 MG BID 12/10 2200 AC 12/13 PO 0800 Metronidazole 500 MG IQ8 12/10 1600 AC 12/13 N/A 1 UNIT IV 0730 Patient Medication 1 ED .STK-MED ONE 12/12 1345 MO Teaching ED 12/12 1346 Tamsulosin HCl 0.4 MG QPM 12/10 2200 AC 12/12 PO 2118 Tramadol HCl 50 MG Q6P PRN 12/10 1230 AC 12/10 PO 1639 Assessment/Plan Assessment: 71-year-old male with a past medical history of hypothyroidism, diverticulitis, BPH, coronary artery disease status post stent placement in December 2013 currently on aspirin and Plavix follows up with Dr. Alejo, hypertension, hyperlipidemia, [id number] diabetes mellitus presents to the ED with chief complaint of nausea, diarrhea accompanied with left lower quadrant pain. Plan #Acute uncomplicated diverticulitis -Abdominal pain much improved ,mild left lower quadrant discomfort persists -No diarrhea overnight -No fevers, no white count -On ceftriaxone and Flagyl day 4, will be discharged home on by mouth antibiotics -Tolerating a low fiber diet. -Currently on a low fiber diet, should be changed to high fiber after 2 weeks. -Patient instructed to follow up with GI and surgery as an outpatient. He is recommended to have an outpatient colonoscopy. Surgery recommended no active intervention at this point. Once the inflammation subsides, sigmoid resection could be planned as an elective procedure after repeat colonoscopy. #History of hypertension -Continue on metoprolol, losartan #Hyperlipidemia -Atorvastatin 20 mg daily #Hypothyroidism - Continue on Synthroid 88 mcg daily - Thyroid studies normal #History of coronary artery disease Continue on aspirin 81 mg daily, atorvastatin 20 mg daily, Plavix 75 mg daily, losartan 50 mg daily, metoprolol 25 mg twice a day - Diet Low fiber diet DVT prophylaxis Heparin 5000IU TID subcutaneous daily CODE STATUS Full code Problem List: 1. Diverticulitis Pain Ratin Pain Location: LEFT LOWER QUADRANT Pain Goal: Pain 4 or less Pain Plan: TRAMADOL Tomorrow's Labs & Rationales: NONE
[2016-12-13] MEDS ORDERED: CIPROFLOXACIN500 M2 PO (10:36)
[2016-12-13] MEDS ORDERED: FLAGYL500 MG PO ×2 (10:36→10:38)
--- NOTE | 2016-12-13 10:38 | PN- Att Addend ---
Attending Addendum Attending Brief Note examined this patient, discuss w/resident/PA/MILK TESTER, agreed w/resident/PA/MILK TESTER, discussed with family, reviewed EMR data (avail), discussed with nursing. Patient continues to have mild to moderate left quadrant pain but it is much better controlled. He denies nausea vomiting or fever. Patient continues to have loose bowel motion but no frankie diarrhea. Vital Signs Date Time Temp Pulse Resp B/P Pulse O2 O2 Flow FiO2 Ox Delivery Rate 12/13 0717 96.0 72 18 130/70 93 Room Air 12/12 2158 97.1 75 18 140/68 96 Room Air 12/12 2118 78 140/68 12/12 2118 78 140/68 12/12 1447 98.0 67 20 120/52 97 Intake & Output 12/13 1600 12/13 0800 12/13 0000 Intake Total 100 900 Output Total Balance 100 900 Intake, IV 100 100 Intake, Oral 800 Number 1 Bowel Movements Exam: General: Patient awake alert oriented without any distress CVS: S1 plus S2 without any murmur or gallops Chest: Few scattered crepitation without any wheeze. There is no respiratory distress. Abdomen: Soft obese with the mild tenderness in left lower quadrant area, bowel sound present, no guarding or rebound [employer]OR HELPER: Awake alert oriented without any focal neuro deficit and follows command appropriately Extremities: No edema; no clubbing or cyanosis noted No new labs done today. Assessment * Acute diverticulitis left sigmoid area * Abdominal pain secondary to diverticulitis * Hyperlipidemia * CAD status post stenting Plan * Discharge home today * Patient to continue Cipro and Flagyl at home for 7 days * Follow with PCP and surgery * Patient is recommended to have outpatient colonoscopy; please add surgical and GI follow-up as outpatient to his discharge paperwork
--- NOTE | 2016-12-14 15:32 | Discharge Summary ---
Visit Information Visit Dates Admission Date: 12/10/16 Discharge Date: 12/13/16 Hospital Course Course Attending Physician: BARBER FOLEY,SORIN Primary Care Physician: KEEGAN PURI MD Hospital Course: 71-year-old male with a past medical history of hypothyroidism, diverticulitis, BPH, coronary artery disease status post stent placement in December 2013 currently on aspirin and Plavix follows up with Dr. Alejo, hypertension, hyperlipidemia, [id number] diabetes mellitus presents to the ED with chief complaint of nausea, diarrhea accompanied with left lower quadrant pain. Labs pertinent for normal white blood cell count 6100, H&H of 14.5/42.3, platelet count 164,000. Serum chemistries revealed sodium of 137, potassium of 4.0, BUN 12 and a creatinine of 1.1. Lactic acid was 1.0. LFTs unremarkable with an AST/ALT of 30/35 and a total bili 1.0. Serum lipase negative at 33 and serum amylase less than 30. CT abdomen and pelvis with IV contrast revealed no new focus of acute diverticulitis in the proximal sigmoid colon, clearing of previously noted diverticulitis in the distal descending colon and scattered diverticulosis throughout the large bowel. He was treated in the hospital for, #Acute uncomplicated diverticulitis: Patient received IV Unasyn in the ED. He was admitted to the general medicine floor and started on IV fluids and IV ceftriaxone and Flagyl. He was maintained on a full liquid diet which was advanced as tolerated. Patient had few episodes of loose stool but C. difficile was negative. His abdominal pain improved with IV hydration and pain meds. He remained afebrile with no white count. Since he was having recurrent episodes of diverticulitis, surgery was consulted to see if he was a candidate for colectomy. Surgeon evaluated the patient and recommended diet modification(low fiber diet for 2 weeks followed by high fiber diet) and repeat colonoscopy post discharge. Patient's symptoms improved on day 3 of admission and he was able to tolerate regular diet. He was discharged home on by mouth Flagyl and by mouth Cipro to complete a course of 10 days of antibiotic. He was advised to follow- up with GI and surgery as an outpatient and discussed regarding available options/sigmoid resection which could be planned electively. #History of hypertension: Continued on metoprolol, losartan #Hyperlipidemia: Stable on Atorvastatin 20 mg daily #Hypothyroidism: Stable on on Synthroid 88 mcg daily.Thyroid studies normal #History of coronary artery disease: ContinueD on aspirin 81 mg daily, atorvastatin 20 mg daily, Plavix 75 mg daily, losartan 50 mg daily, metoprolol 25 mg twice a day Regular low fiber diet DVT prophylaxis Heparin 5000IU TID subcutaneous daily CODE STATUS Full code Allergies: Coded Allergies: No Known Allergies (08/19/16) Disposition Summary Disposition Principal Diagnosis: Acute uncomplicated diverticulitis Additional Diagnosis: hypertension Discharge Disposition: home or self care Discharge Instructions General Discharge Information Code Status: Full Code Patient's Diet: Low fiber diet for 2 weeks, followed by high fiber diet Patient's Activity: As tolerated Follow-Up Instructions/Appts: # Please continue to take ciprofloxacin and flagyl for 7 more days( as per instructions on your bottle) # please follow-up with [facility] within 1 week post discharge.You will need to have repeat colonoscopy # please see surgeon Dr. Mckinley within 2 weeks of discharge. #Please continue low fiber diet for 2 weeks, followed by high fiber diet. Medications at Discharge Discharge Medications: Continue taking these medications: Simvastatin (Simvastatin*) 40 MG TABLET 1 Tablet ORAL Every night Qty = 30 Comments: Last Taken:12/12/16 Time: 2200pm Metoprolol Succinate (Metoprolol Succinate) 25 MG TAB 1 Tablet ORAL TWICE DAILY Qty = 60 Comments: Last Taken:12/13/16 Time:0800AM Clopidogrel Bisulfate (Clopidogrel) 75 MG TABLET 1 Tablet ORAL DAILY Qty = 90 Comments: Last Taken: 12/13/16 Time: 0800AM Losartan Potassium (Losartan Potassium) 50 MG TABLET 1 Tablet ORAL DAILY Qty = 90 Comments: Last Taken:12/13/16 Time:0800AM Aspirin (Aspirin*) 81 MG TAB.CHEW 1 Tablet ORAL Every night Comments: Last Taken:12/12/16 Time:2200pm [place]-3 Fatty Acids/Fish Oil (Fish Oil 1,000 MG Capsule) 340 MG-1,000 MG CAPSULE 1 Capsule ORAL TWICE DAILY Comments: Last Taken:08/21/16 Time:10:00 Cholecalciferol (Vitamin D3) 1,000 UNIT TABLET 2 Tablet ORAL DAILY Comments: NOT GIVEN IN HOSPITAL Ascorbate Calcium (Vitamin C) 500 MG TABLET 1 Tablet ORAL DAILY Comments: NOT GIVEN IN HOSPITAL Multivitamin (Daily Multiple Vitamin) 1 EACH TABLET 1 Tablet ORAL DAILY Comments: not given in hospital Metformin HCl (Metformin HCl) 500 MG TABLET 1 Tablet ORAL TWICE DAILY Qty = 180 Comments: NOT GIVEN IN HOSPPITAL Tamsulosin HCl (Flomax) 0.4 MG CAP.ER.24H 1 Capsule ORAL DAILY Days = 30 Comments: Last Taken:12/12/16 Time:2200pm Hyoscyamine Sulfate (Hyoscyamine Sulfate) 0.125 MG TAB.SUBL 1 Tablet SUBLINGUAL 4 TIMES A DAY Comments: NOT GIVEN IN HOSPITAL Levothyroxine Sodium (Levothyroxine Sodium) 88 MCG TABLET 1 Tablet ORAL DAILY Qty = 90 Comments: Last Taken: 12/13/16 Time: 0800AM Start taking the following new medications: Metronidazole (Flagyl) 500 MG TABLET 1 Tablet ORAL EVERY 8 HOURS Days = 7 No Refills Comments: IV FLAGYL GIVEN 12/13/16 @0745AM Ciprofloxacin HCl (Ciprofloxacin HCl) 500 MG TABLET 1 Tablet ORAL TWICE DAILY Days = 7 No Refills Comments: NOT GIVEN IN HOPSITAL Copies To: JAXSON FOLEY,KEEGAN Nogueira; SORIN BLANDON MD; SEAN FOLEY,NIRU Gordon Attending MD Review Statement Documenting Attending: SORIN BLANDON MD
== END 2016-12-13 12:11 | DRG 392 ==
LOC: ENRESERVTM → ENRESERVDT → ERH 07:37 → ENPENDDIS 11:34 → 2NB 11:34 → ERHI 11:34 → 2NB 13:02
PROVIDERS: Internal Medicine Infectious Disease; Physician Assistant Medical; ADMIT Hospitalist
DX: K57.92 Diverticulitis of intestine, part unspecified, without perforation or abscess without bleeding (principal); E11.9 Type 2 diabetes mellitus without complications; I10 Essential (primary) hypertension; E03.9 Hypothyroidism, unspecified; K57.30 Diverticulosis of large intestine without perforation or abscess without bleeding; E78.5 Hyperlipidemia, unspecified; N40.0 Benign prostatic hyperplasia without lower urinary tract symptoms; I25.10 Atherosclerotic heart disease of native coronary artery without angina pectoris; Z95.5 Presence of coronary angioplasty implant and graft; Z79.84 Long term (current) use of oral hypoglycemic drugs
CPT/HCPCS: 2NBP; 6020; 36415; 74177; 81003; 82436; 87045; 87328; 87329; 93005; 93010; 96365; G0378; J0131; J0696; J1644; J3490